=== PATIENT | male | born 2000 | race Caucasian/White ===

== ENCOUNTER 2020-09-02 20:58 | Observation (INO) | payer OTHER, BC ==
[2020-09-02] MEDS ORDERED: TORAdol 30 mg Injection ONE (21:34)
[2020-09-02] MEDS ORDERED: TORAdol 30 mg Injection IM ONE (21:36)
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
[2020-09-03] MEDS ORDERED: Sodium Chloride 0.9% 1000 ML 1,000 ML IV STA (00:07)
[2020-09-03] MEDS ORDERED: Sodium Chloride 0.9% 1000 ML 1,000 ML ONE (00:14)
[2020-09-03 00:31] LABS: Absolute Neutrophil Ct (ANC) 10.35 (1.4-6.9); BASOPHIL % 0.4 % (0.0-0.4); Basophil (Absolute #) 0.06 (0-0.4); Eosinophil % 0.5 % (0.00-5.0); Eosinophil (Absolute #) 0.07 (0-0.5); Hematocrit 43.6 % (42-50); Hemoglobin 14.7 gm/dl (12.5-18.0); Lymphocyte (Absolute #) 3.77 (1.0-4.6); Lymphocytes % 24.7 % (24.0-44.0); Mean Cell Volume 86.3 fl (78-100); Mean Corpuscular Hemoglobin 29.1 pg (26-32); Mean Corpuscular Hgb Concent. 33.7 g/dl (32-36); Mean Platelet Volume 10.7 fl (7.5-11.0); Monocyte (Absolute #) 1.02 (0.0-1.3); Monocytes % 6.7 % (0.0-12.0); Neutrophil % 67.7 % (36.0-66.0); Platelet Count 302 K/mm3 (150-450); Red Blood Count 5.05 M/mm3 (4.1-5.6); Red Cell Distribution Width 13.6 % (11.5-14.0); White Blood Count 15.3 K/mm3 (4.0-10.5)
[2020-09-03 00:51] LABS: ALBUMIN 4.4 g/dL (3.5-5.0); ALKALINE PHOSPHATASE 61 U/L (38-126); ANION GAP 12.7 MEQ/L (5-15); BLOOD UREA NITROGEN 15 mg/dL (9-20); CHLORIDE 105 mmol/L (98-107); Calcium 9.6 mg/dL (8.4-10.2); Carbon Dioxide 25 mmol/L (22-30); Creatinine 1 0.69 mg/dL (0.66-1.25); EST GLOMERULAR FILTRATION RATE > 60.0 ML/MIN; Glucose 93 mg/dL (74-106); LIPASE 92 U/L (23-300); SGOT/AST 78 U/L (17-59); SGPT/ALT 77 U/L (0-50); SODIUM 138 mmol/L (137-145); Total Protein 7.5 g/dL (6.3-8.2)
[2020-09-03 01:44] LABS: INFLUENZA A NEGATIVE (NEGATIVE); INFLUENZA B NEGATIVE (NEGATIVE); RESPIRATORY SYNCTIAL VIRUS NEGATIVE (Negative)
[2020-09-03] MEDS ORDERED: Zofran 4 MG/2 ML VIAL IV PRN (02:34)
[2020-09-03] MEDS ORDERED: MORPHINE SULFATE 2 MG INJ IV PRN (02:34)
[2020-09-03] MEDS ORDERED: Sodium Chloride 0.9% 1000 ML 1,000 ML IV SCH (02:34)
[2020-09-03 05:32] LABS: Absolute Neutrophil Ct (ANC) 5.67 (1.4-6.9); BASOPHIL % 0.5 % (0.0-0.4); Basophil (Absolute #) 0.05 (0-0.4); Eosinophil % 0.8 % (0.00-5.0); Eosinophil (Absolute #) 0.08 (0-0.5); Hematocrit 41.3 % (42-50); Hemoglobin 13.8 gm/dl (12.5-18.0); Lymphocyte (Absolute #) 3.95 (1.0-4.6); Lymphocytes % 37.2 % (24.0-44.0); Mean Cell Volume 87.5 fl (78-100); Mean Corpuscular Hemoglobin 29.2 pg (26-32); Mean Corpuscular Hgb Concent. 33.4 g/dl (32-36); Mean Platelet Volume 10.8 fl (7.5-11.0); Monocyte (Absolute #) 0.86 (0.0-1.3); Monocytes % 8.1 % (0.0-12.0); Neutrophil % 53.4 % (36.0-66.0); Platelet Count 278 K/mm3 (150-450); Red Blood Count 4.72 M/mm3 (4.1-5.6); Red Cell Distribution Width 13.7 % (11.5-14.0); White Blood Count 10.6 K/mm3 (4.0-10.5)
[2020-09-03 06:08] LABS: ALBUMIN 3.9 g/dL (3.5-5.0); ALKALINE PHOSPHATASE 54 U/L (38-126); ANION GAP 11.7 MEQ/L (5-15); BLOOD UREA NITROGEN 14 mg/dL (9-20); CHLORIDE 106 mmol/L (98-107); Calcium 9.1 mg/dL (8.4-10.2); Carbon Dioxide 25 mmol/L (22-30); Creatinine 1 0.69 mg/dL (0.66-1.25); EST GLOMERULAR FILTRATION RATE > 60.0 ML/MIN; Glucose 94 mg/dL (74-106); Potassium 3.9 mmol/L (3.5-5.1); SGOT/AST 68 U/L (17-59); SGPT/ALT 67 U/L (0-50); SODIUM 139 mmol/L (137-145); Total Protein 6.7 g/dL (6.3-8.2)
[2020-09-03 07:30] VITALS: BP 135/71; PULSE 83
[2020-09-03 08:26] VITALS: O2SAT 96
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
== END 2020-09-03 09:55 | disposition home or self-care (01) ==
LOC: ED 20:58 → MED SURG 09-03 02:33
PROVIDERS: ADMIT Family Medicine; ATTEND Family Medicine
DX: S60.032A Contusion of left middle finger without damage to nail, initial encounter (principal); R51.9 Headache, unspecified; R07.81 Pleurodynia; M25.552 Pain in left hip; M79.645 Pain in left finger(s); R10.9 Unspecified abdominal pain; Z79.899 Other long term (current) drug therapy; V86.55XA Driver of 3- or 4- wheeled all-terrain vehicle (ATV) injured in nontraffic accident, initial encounter; R74.8 Abnormal levels of other serum enzymes; Z20.828 Contact with and (suspected) exposure to other viral communicable diseases
CPT/HCPCS: 0241U; 36000; 36415; 70450; 71045; 73130; 74176; 80053; 83690; 85025; 93268; 94762; 96372; 99285; G0378; J1885